=== PATIENT | male | born 1950 | race Caucasian/White ===

== ENCOUNTER 2016-10-23 07:26 | Emergency (ER) | payer OTHER ==
[2016-10-23 07:44] VITALS: BP 122/72
--- NOTE | 2016-10-23 08:20 | RAD ---
INDICATION: Right foot injury. TECHNIQUE: 3 views of the right foot were obtained. FINDINGS: There is an oblique fracture extending through the proximal aspect of the fifth proximal phalanx. The distal fragment is displaced slightly lateral approximately 1 cortical diameter. No other fractures are seen. IMPRESSION: SLIGHTLY DISPLACED FRACTURE OF THE FIFTH PROXIMAL PHALANX.
--- NOTE | 2016-10-23 08:37 | UC ---
Lokesh Garcia Benjamin, scribed for Anne Myles MD on 10/23/16 at 0819 . Lower Extremity/Ankle HPI - HPI Summary HPI Summary: 66yo male who reports pain in right foot and 5th toe after having a heavy object dropped on his right foot yesterday. Pt also reports hx of right metatarsal fx in 2004. - History of Current Complaint Chief Complaint: UC Stated Complaint: RIGHT FOOT INJURY Time Seen by Provider: 10/23/16 07:39 Hx Obtained From: Patient Onset/Duration: Sudden Onset, Lasting Days - 1 day, Still Present Severity Initially: Moderate Severity Currently: Moderate Pain Intensity: 6 Pain Scale Used: 0-10 Numeric Aggravating Factor(s): Ambulation Alleviating Factor(s): Rest - Allergies/Home Medications Allergies/Adverse Reactions: Allergies Allergy/AdvReac Type Severity Reaction Status Date / Time Penicillins Allergy Unknown Unknown Verified 06/10/15 13:16 Reaction Details PMH/Surg Hx/FS Hx/Imm Hx Endocrine History Of: Denies: Diabetes Cardiovascular History Of: Denies: Hypertension, Myocardial Infarction Respiratory History Of: Denies: COPD, Asthma - Surgical History Surgical History: Yes Surgery Procedure, Year, and Place: CATARACT. RIGHT KNEE. RIGHT HEEL - Family History Known Family History: Positive: Cardiac Disease Negative: Hypertension, Diabetes - Social History Occupation: Employed Full-time Lives: With Family Alcohol Use: Daily Alcohol Amount: 1-2/day Substance Use Type: None Substance Use Comment - Amount & Last Used: Every other week Smoking Status (MU): Never Smoked Tobacco Review of Systems Constitutional: Negative Skin: Negative Eyes: Negative ENT: Negative Respiratory: Negative Cardiovascular: Negative Gastrointestinal: Negative Genitourinary: Negative Motor: Negative Neurovascular: Negative Musculoskeletal: Arthralgia - right 5th toe pain Neurological: Negative Psychological: Negative All Other Systems Reviewed And Are Negative: Yes Physical Exam Triage Information Reviewed: Yes Appearance: Well-Nourished Vital Signs: Initial Vital Signs Temp 97.6 F 10/23/16 07:41 Pulse 60 10/23/16 07:41 Resp 16 10/23/16 07:41 BP 122/72 10/23/16 07:41 Pulse Ox 99 10/23/16 07:41 Vital Signs Reviewed: Yes ENT Exam: Normal Neck exam: Normal - no adenopathy appreciated Respiratory Exam: Normal - no dyspnea, no tachypnea Cardiovascular Exam: Normal - heart rate regular, good general skin color, good capillary refill Abdominal Exam: Normal Abdomen Description: Positive: Nontender, No Organomegaly, Soft Bowel Sounds: Positive: Present Musculoskeletal Exam: Other - R foot + eccymosis and swelling at 5th MTP region. + point tender prox phalanx. Distal sens LT intact x 5 dig. CR < 2 sec 5th digit. No open skin injury noted. Neurological Exam: Normal - nonfocal, grossly intact Psychological Exam: Normal - conversing easily and appropriately Skin Exam: Normal Diagnostics - Radiology Right foot XR Xray Interpretation: Positive (See Comments) - IMPRESSION: SLIGHTLY DISPLACED FRACTURE OF THE FIFTH PROXIMAL PHALANX. Radiology Interpretation Completed By: Radiologist Lower Extremity Course/Dx - Course Course Of Treatment: No new problems in CCC. Considered below differential dx' s. Reviewed Xray and Xray report with Mr. Lea. Report in [place]. Pt declines orthopedic referral. Pt also declines crutches. He will f/u with Dr. Lakhani (PCP) in approx 2 weeks. D/w Mr. Lea the importance of immobility as possible, pressure offloading, avoidance of shear forces until healed. Est approx 6 weeks, again he will check in with his pcp in 2 weeks. Will take otc nsaids prn, hitesh next couple days. Elevation encouraged. Questions answered to the best of my ability. - Differential Dx/Diagnosis Provider Diagnoses: R 5th toe prox phalanx fx Discharge - Discharge Plan Condition: Stable Disposition: HOME Patient Education Materials: Ibuprofen (By mouth), Toe Fracture (ED) Referrals: Quentin Lakhani MD [Primary Care Provider] - Additional Instructions: Immobilize as much as possible during the day, or whenever you put weight on the foot. Elevate as much as possible. Follow up with Dr. Lakhani in approx 2 weeks for recheck. If orthopedic referral is indicated, then he can assist with the referral. Please seek medical attention for any worse or new problems. The documentation as recorded by the Lokesh mauro Benjamin accurately reflects the service I personally performed and the decisions made by me, Anne Myles MD.
== END 2016-10-23 08:45 | disposition home or self-care (01) ==
LOC: UCEAST 07:26
DX: S92.511A Displaced fracture of proximal phalanx of right lesser toe(s), initial encounter for closed fracture (principal); W20.8XXA Other cause of strike by thrown, projected or falling object, initial encounter
CPT/HCPCS: 99212; G0463